=== PATIENT | male | born 1945 | race Caucasian/White ===

== ENCOUNTER 2017-04-29 16:44 | Inpatient (IN) | payer MEDICARE, MEDICAID ==
[~2017-04-29] VITALS: Ht 180.3 cm; Wt 48.3 kg
[2017-04-29] MEDS ORDERED: ARICEPT10 M1 PO (17:58)
[2017-04-29] MEDS ORDERED: CLOZARIL25 MG PO (17:59)
[2017-04-29] MEDS ORDERED: CLOZAPINE100 MG PO (17:59)
[2017-04-29] MEDS ORDERED: FLOMAX0.4 MG PO (18:00)
[2017-04-29] MEDS ORDERED: PRILOSEC20 M1 PO (18:00)
[2017-04-29] MEDS ORDERED: VITAMIN E400 UNI2 PO (18:00)
[2017-04-29] MEDS ORDERED: STRESS FORMULA PO (18:01)
[2017-04-29] MEDS ORDERED: VITAMIN D31000 UNI1 PO (18:01)
[2017-04-29] MEDS ORDERED: VITAMIN C500 M4 PO (18:02)
[2017-04-29] MEDS ORDERED: RISPERDAL2 M1 PO (18:02)
[2017-04-29] MEDS ORDERED: IRON325 M1 PO (18:03)
[2017-04-29] MEDS ORDERED: SPIRIVA18 MCG PO (18:03)
[2017-04-29] MEDS ORDERED: PROAIR HFA8.5 GM INH (18:04)
[2017-04-29] MEDS ORDERED: ATIVAN1 MG PO (18:04)
[2017-04-29] MEDS ORDERED: EXELON1 EACH T (18:06)
[2017-04-29 21:24] VITALS: BP 111/89
[2017-04-29 22:10] VITALS: BP 111/89
[2017-04-29 23:37] LABS: ALKALINE PHOSPHATASE 102 U/L (45-117); BUN 20 mg/dl (7-24); CHLORIDE 102 mmol/L (98-107); CREATININE 1.02 mg/dL (0.70-1.30); SGOT/AST 118 IU/L (3-35); SGPT/ALT 56 U/L (12-78); SODIUM 139 mmol/L (136-145); TOTAL PROTEIN 6.1 gm/dL (6.4-8.2)
[2017-04-29 23:43] LABS: BASO % 0.5 % (0.0-1.0); EOS % 0.2 % (1.0-4.0); HEMATOCRIT 42.1 % (42.0-52.0); HEMOGLOBIN 14.5 g/dl (14.0-18.0); LYMPH # 0.8 10*3/uL (1.3-4.4); LYMPH % 12.2 % (27.0-41.0); MEAN CELL VOLUME 93.8 fl (80.0-94.0); MEAN CORPUSCULAR HGB 32.3 pg (27.0-31.0); MEAN CORPUSCULAR HGB CONC 34.4 g/dl (33.0-37.0); MONO # 0.4 10*3/uL (0.1-1.0); MONO % 7.1 % (3.0-9.0); NEUT # 4.8 10*3/uL (2.3-7.9); NEUT % 78.2 % (47.0-73.0); PLATELET COUNT AUTOMATED 88 10*3/uL (130-400); RED BLOOD COUNT 4.49 10*6/uL (4.50-5.90); RED CELL DISTRI WIDTH 13.5 % (0-14.5); WHITE BLOOD COUNT 6.2 10*3/uL (4.8-10.8)
[2017-04-29 23:45] LABS: THYROID STIM HORMONE (HS) 0.951 uIU/ml (0.358-4.75)
[2017-04-30] MEDS ORDERED: EXELON1 EACH T (01:53)
[2017-04-30] MEDS ORDERED: INVEGA3 MG PO (01:56)
[2017-04-30 02:35] LABS: BILIRUBIN NEGATIVE (NEGATIVE); BLOOD 3+ (NEGATIVE); CLARITY SL CLOUDY (CLEAR); COLOR YELLOW (YELLOW); GLUCOSE NEGATIVE (NEGATIVE); KETONE TRACE (NEGATIVE); LEUKO ESTERASE NEGATIVE (NEGATIVE); NITRITE NEGATIVE (NEGATIVE); PH 5.5 (5.0-9.0); SPECIFIC GRAVITY 1.025 (1.005-1.030); UROBILINOGEN 0.2 E.U./dl (0.2-1.0)
[2017-04-30 02:47] LABS: BACTERIA 1+
[2017-04-30 03:14] VITALS: BP 112/74
== END 2017-04-30 04:03 | disposition short-term general hospital (02) | DRG 885 ==
LOC: 3N 16:44
PROVIDERS: Psychiatry & Neurology Psychiatry
DX: F20.9 Schizophrenia, unspecified (principal); J96.01 Acute respiratory failure with hypoxia; R65.20 Severe sepsis without septic shock; A41.9 Sepsis, unspecified organism; F03.91 Unspecified dementia, unspecified severity, with behavioral disturbance; F41.9 Anxiety disorder, unspecified; N40.0 Benign prostatic hyperplasia without lower urinary tract symptoms; F31.9 Bipolar disorder, unspecified; K21.9 Gastro-esophageal reflux disease without esophagitis; I10 Essential (primary) hypertension; J41.8 Mixed simple and mucopurulent chronic bronchitis; Z72.0 Tobacco use; Z79.899 Other long term (current) drug therapy; Z91.81 History of falling; Z71.6 Tobacco abuse counseling

== ENCOUNTER 2017-04-30 04:05 | Inpatient (IN) | payer MEDICARE, MEDICAID ==
[~2017-04-30] VITALS: Ht 177.8 cm; Wt 49.6 kg
--- NOTE | ~2017-04-30 | CON ---
[place], [place] REPORT OF CONSULTATION NAME: KALEIGH QUISPE UNIT #: [id number] ROOM: [facility] DOCTOR: EMILIANA NESS,ALBINA Owens BIRTHDATE: [birth year] DOS: 04/30/2017 ADDENDUM: After reviewing the labs, radiographs and microbiology, I agree with the above plans as described. We will follow the patient up clinically and adjust accordingly. ALBINA HOPSON MD CM:CONSTR:REPORT OF CONSULTATION 214 04/30/172201 interface
--- NOTE | ~2017-04-30 | PR ---
[place], [place] PROGRESS NOTE NAME: KALEIGH QUISPE UNIT #: [id number] ROOM: [facility] DOCTOR: DREW MEHTA MD BIRTHDATE: [birth year] DOS: 05/01/2017 REASON FOR VISIT: Atrial fibrillation. SUBJECTIVE: The patient is comfortable. Denies any chest pain, palpitations. No edema, no orthopnea. He is eating his late lunch today. Somewhat shaky. No nausea, vomiting. No fever and chills. REVIEW OF SYSTEMS: Review of the 8 systems negative except as mentioned above. RHYTHM STRIPS: Patient is in sinus rhythm. PHYSICAL EXAMINATION: VITAL SIGNS: Blood pressure 129/69, pulse 63, respiratory rate 19. GENERAL: Alert, comfortable, in no acute distress. NECK: Supple, no distended neck veins, no carotid bruit. CHEST: Symmetrical, nontender. LUNGS: A few scattered rhonchi. HEART: Regular rhythm. ABDOMEN: Benign, nontender. Bowel sounds normal. EXTREMITIES: Showed no edema. Distal pulses are palpable. SKIN: Warm and dry. No cyanosis, no clubbing. NEUROLOGIC: Patient is alert, oriented. No focal neurologic deficit. RECTAL: Deferred. GENITOURINARY: Deferred. IMPRESSION: 1. Paroxysmal atrial fibrillation. 2. Pneumonia. 3. Schizophrenia. RECOMMENDATIONS: 1. Blood pressure and heart rate are stable. 2. Continue his Xarelto at this time. 3. His atrial fibrillation is noted in the setting of pneumonia; again this is the first episode with his CHADS-VASc score of 1. His 2D echo showed normal LV function and valvular function, would recommend aspirin, possibly high risk for long-term anticoagulation. 4. No family at bedside at the time of my examination. 5. A 2D echo is pending, this will be done tomorrow, Tuesday. [place], [place] PROGRESS NOTE NAME: BRITTANEYKALEIGH Khan UNIT #: [id number] ROOM: [facility] DOCTOR: DREW MEHTA MD BIRTHDATE: [birth year] DREW MEHTA MD CM:PNTRANS 1547 DREW MEHTA MD 05/02/17 0105 interface
--- NOTE | ~2017-04-30 | PR ---
[place], [place] PROGRESS NOTE NAME: KALEIGH QUISPE [facility] #: [id number] UNIT #: [id number] ROOM: [facility] DOCTOR: STEPHANIE ACEVEDO,JULY BIRTHDATE: [birth year] DOS: 05/01/2017 SUBJECTIVE: The patient is being followed for community-acquired pneumonia. He arrived with it. He was originally from a retirement, went through [facility] and was pink slipped by psych to come here and presented with fever and was diagnosed with community-acquired pneumonia. He is responding well to Rocephin and Zithromax. He has been afebrile. The patient himself is a very poor historian, but he denies pain, denies cough, shortness of breath. No rash or itch. No fevers or shaking chills. No nausea, vomiting or diarrhea. He has good appetite. His blood cultures are negative. Urinary antigens are pending. Urine culture is negative. CURRENT MEDICATIONS: Include Xarelto, Rocephin, Zithromax, Phenergan, Motrin, DuoNeb, vitamin E, vitamin D, Flomax, Feosol, vitamin C, Invega, Protonix. LABORATORY DATA: WBC is 4.2, platelets 79. BUN 15, creatinine 0.64. PHYSICAL EXAMINATION: VITAL SIGNS: Temperature 97.7, pulse 80, respirations 16, BP 138/83. GENERAL: A 71-year-old male, in no acute distress. HEAD, EYES, EARS, NOSE AND THROAT: Normocephalic. No thrush. LUNGS: Clear to auscultation bilaterally. Respirations even and unlabored. HEART: Regular rhythm. No murmur appreciated. ABDOMEN: Soft, nontender. EXTREMITIES: No edema or deformity. He does have poor respiratory effort with lung auscultation as well as horrible dentition, which should be addressed at some point. ASSESSMENT: Community-acquired pneumonia. PLAN: He is responding well to Rocephin and Zithromax, which we will continue, followup for the urinary antigens, followup on blood cultures and adjust antibiotics accordingly. ADDENDUM After reviewing the chart, labs and radiographs, I agree with the above plans as described. We will follow the patient up clinically and adjust accordingly. JULY KRISTINA BROWN [place], [place] PROGRESS NOTE NAME: KALEIGH QUISPE UNIT #: [id number] ROOM: [facility] DOCTOR: STEPHANIE ACEVEDOJULY BIRTHDATE: [birth year] ALBINA HOPSON MD CM:PNTRANS 1852 12 STEPHANIE ACEVEDO 05/02/17 0826 interface
--- NOTE | ~2017-04-30 | CON ---
[place], [place] REPORT OF CONSULTATION NAME: KALEIGH QUISPE UNIT #: [id number] ROOM: [facility] DOCTOR: JANINE NESS,DREW BIRTHDATE: [birth year] DOS: 04/30/2017 CARDIOLOGY CONSULT REASON FOR CONSULTATION: Atrial fibrillation. CLINICAL HISTORY: The patient is a 71-year-old patient with anxiety, schizophrenia, COPD, dementia, presented for fever and chest x-ray shows some possible pneumonia and was admitted to the hospital and found to be in atrial fibrillation with rapid ventricular rate, hence the Cardiology was consulted. He has a history of schizophrenia, hence history was mostly obtained from the chart. There is no family at the time of my examination. The patient is somewhat poor historian, but at the time of my examination, he denies any chest pain or shortness of breath, no palpitations, no dizziness. He was treated with intravenous digoxin and metoprolol for rate control and at the time of examination, the patient was in sinus rhythm, but denied any fever, no edema, no orthopnea, no dizziness or syncope. No nausea, vomiting or diarrhea. No bladder or bowel symptoms. PAST MEDICAL HISTORY: 1. Anxiety. 2. COPD. 3. GERD. 4. Schizophrenia. 5. Benign prostatic hypertrophy. PAST SURGICAL HISTORY: Noncontributory. SOCIAL HISTORY: The patient does not drink or use illicit drugs, does smoke about half pack a day. ALLERGIES: Reviewed. HOME MEDICATIONS: Reviewed. FAMILY HISTORY: Unknown. PHYSICAL EXAMINATION: VITAL SIGNS: Blood pressure 90/55, pulse 67, respirations 14, weight 49.6 kilos. GENERAL: Alert, comfortable, in no acute distress. HEENT: Pupils are round and equal. No jaundice. NECK: Supple. No distended neck veins, no carotid bruit. CHEST: Symmetrical, nontender. LUNGS: Clear to auscultation bilaterally. HEART: Regular rhythm. No S3. Grade 1/6 systolic murmur. No palpable thrills. ABDOMEN: Benign, nontender. Bowel sounds normal. EXTREMITIES: Showed no edema. Distal pulses are palpable. SKIN: Warm and dry. No cyanosis, no clubbing. [place], [place] REPORT OF CONSULTATION NAME: KALEIGH QUISPE UNIT #: [id number] ROOM: [facility] DOCTOR: JANINE NESS,DREW BIRTHDATE: [birth year] NEUROLOGIC: The patient is alert, oriented. No focal neurologic deficit. RECTAL: Deferred. GENITOURINARY: Deferred. REVIEW OF THE DIAGNOSTIC TESTS: His labs, imaging studies and EKGs reviewed and his cardiac troponin was 0.076 and 0.087, potassium 3.9, magnesium 1.9, TSH 1.49. IMPRESSION: 1. Atrial fibrillation with rapid ventricular rate, new onset, CHADS2-VASc score appears to be 1 for his age. He has no history of hypertension, diabetes, heart failure, known coronary disease or strokes. 2. Borderline elevation of troponin, possibly due to tachycardia. The patient has no chest pain and no significant ischemic changes. 3. Borderline low blood pressure, continue to monitor heart rates and blood pressures. 4. Sepsis due to pneumonia. 5. Schizophrenia. 6. Chronic obstructive pulmonary disease. 7. Tobacco use. RECOMMENDATIONS: 1. Currently, heart rates are stable. His blood pressure is slightly low. He cannot tolerate any medications. He was already started on Xarelto 20 mg once daily for anticoagulation. As blood pressures are better, I would recommend metoprolol 25 mg once daily. 2. Check 2D echo for LV function and valvular function. 3. There is no family at the time of my examination. 4. Consider a stress test, possible Lexiscan stress test. Prior to discharge as an outpatient based on his echo findings. 5. The patient was counseled to quit smoking. Thank you, Dr. Vallecillo, for asking me to evaluate the patient. We will follow the patient along with you. DREW MEHTA MD CM:CONSTR:REPORT OF CONSULTATION 1609 05/01/17 0256 interface
--- NOTE | ~2017-04-30 | CON ---
[place], [place] REPORT OF CONSULTATION NAME: KALEIGH QUISPE UNIT #: [id number] ROOM: [facility] DOCTOR: KIM WORLEY MD BIRTHDATE: [birth year] DOS: 04/30/2017 CHIEF COMPLAINT: The patient was overly somnolent. HISTORY OF PRESENT ILLNESS: This is a 71-year-old white male who I initially evaluated at [facility]. The patient apparently had been rehabbing at [facility] and was picked up by his nurse case management from the [facility] and brought back to his [facility] where he had been a resident for some time. Within the 12 hours of him being admitted to the [facility], the patient had many, many falls and stated that the falls were because he was being bewitched by demons and witches. He was eventually brought in to [place] to be evaluated and reported to them that he was no longer able to move and could not walk any longer. Again, he attributed this all to witchcraft. The patient has a lengthy history of schizophrenia and is followed at the [facility]. He was in the process of being admitted to the [facility] when he was found to have a temperature of 102.3, a pulse ox of 88% on room air and chest x-ray showing left basilar consolidation and he was ultimately transferred from [facility] to ICU for further treatment. MENTAL STATUS: Limited due to his somnolence. DIAGNOSIS: Schizoaffective disorder. PLAN: I will restart him on Invega. He had previously been on Clozaril and Risperdal while a patient in [place]. At this point, once you stabilize him medically, I do think he would benefit from further stay at the [facility]. KIM WORLEY MD CM:CONSTR:REPORT OF CONSULTATION 0911 04/30/17 1509 interface
--- NOTE | ~2017-04-30 | PR ---
[place], [place] PROGRESS NOTE NAME: KALEIGH QUISPE [facility] #: [id number] UNIT #: [id number] ROOM: [facility] DOCTOR: KENNETH FLOREZ MD BIRTHDATE: [birth year] DOS: 05/02/2017 CARDIOLOGY PROGRESS NOTE SUBJECTIVE: The patient was seen in his ICU bed today, 05/02/2017 for followup of newly documented atrial fibrillation. He is a 71-year-old man with no previous history of heart disease, who presented to the hospital with anxiety, pneumonia and fever. He does have a history of schizophrenia and dementia and is unable to provide any coherent history. He states he feels poorly today because he does not have enough bed rest. He denies any chest pain. On admission, he did have a heart rate of 150, but he did convert spontaneously to sinus rhythm. He is being treated for pneumonia. PHYSICAL EXAMINATION: VITAL SIGNS: His pulse is 78 with an occasional premature beat, blood pressure is 111/63. He is afebrile. NECK: Supple. He has no jugular distention. CHEST: Has decreased breath sounds at the bases. HEART: Has a regular rhythm with an occasional premature contraction. He has a fourth heart sound, but no third heart sound or murmur. ABDOMEN: Benign. EXTREMITIES: Showed no edema. LABORATORY DATA: White count is 6100 with hemoglobin of 12.3 and a platelet count of 104,000. His platelet count was as low as 79,000. Sodium is 142, potassium 3.5, BUN 9 and creatinine 0.61. IMPRESSION: 1. Newly documented atrial fibrillation. CHADS-VASc score is 1 for the patient's age. 2. Borderline elevation of troponin, likely due to tachycardia. 3. Pneumonia with sepsis. 4. Schizophrenia. 5. Dementia. 6. Chronic obstructive pulmonary disease. 7. Tobacco abuse. PLAN: For now we will continue Lovenox. We will be checking an echocardiogram today. If he shows no signs of heart failure, I think that in the long run he would likely be safer if we treated him with aspirin only as his anticoagulant, especially since he has a fairly low risk for stroke in the future with a CHADS-VASc score of 1. We will continue to follow him with his other physicians. We thank the hospitalist physicians for asking our advice regarding his care. [place], [place] PROGRESS NOTE NAME: KALEIGH QUISPE UNIT #: [id number] ROOM: [facility] DOCTOR: KENNETH FLOREZ MD BIRTHDATE: [birth year] KENNETH FLOREZ MD CM:PNTRANS 1131 09 KENNETH FLOREZ MD 05/02/17 1310 interface
--- NOTE | ~2017-04-30 | CON ---
[place], [place] REPORT OF CONSULTATION NAME[facility]PE [id number] UNIT #: [id number] ROOM: [facility] DOCTOR: STEPHANIE ACEVEDO,JULY BIRTHDATE: [birth year] DOS: 04/30/2017 HISTORY OF PRESENT ILLNESS: The patient is a 71-year-old male who was transferred here from [facility]. He lives in a care home. He is schizophrenic and was apparently having issues at the care home, refusing to get out of bed, saying that he is falling a lot, that he was being affected by witchcraft. He was seen by Dr. Raymond in [facility] and pink slipped to the Behavioral Health Unit here at [facility]. However, upon arrival there, he had a temperature of 102 and was tachycardic. He was admitted into the hospital and found to have AFib with RVR as well as a chest x-ray that showed left lower lobe infiltrate. He does have a cough according to nursing. The patient himself cannot give accurate review of systems due to his mental status. He is alert. He is responsive, but per nursing, the review of systems is not accurate. His temperature has improved. He was originally dosed with Zosyn, vancomycin and Levaquin for healthcare-associated pneumonia. However, since he was transferred directly from the Emergency Room, his antibiotics were changed appropriately to Rocephin and Zithromax for community-acquired pneumonia. His urinary antigens are pending. Urine and blood cultures are pending. Again, he is afebrile at this point. I do not see a swab for correction. He also had an influenza that was negative. History is obtained per discussion with nursing and review of the chart. PAST MEDICAL HISTORY: As above as well as anemia, anxiety, BPH, COPD, GERD, dementia, hypertension, schizophrenia. SOCIAL HISTORY: He is a smoker, half pack of cigarettes per day. He does not know for how long. He actually cannot tell me how much he smokes but that is what is documented on his chart. He does not answer regarding alcohol or illicit drug use; however, according to the chart, he does not use either and again, he lives in a care home. FAMILY MEDICAL HISTORY: Unknown and unobtainable. ALLERGIES: No known drug allergies. CURRENT MEDICATIONS: Include Xarelto, Rocephin, Zithromax, Phenergan, Motrin, DuoNebs, vitamin E, vitamin D, Feosol, vitamin C, Invega, Protonix. LABORATORY DATA: WBC 6.8, platelets 89. Urine for legionella and strep pneumo antigen are negative. His UA does not have any significant pyuria. His troponin is elevated at 0.076. BUN 23, creatinine 0.86, AST 134, ALT 58. REVIEW OF SYSTEMS: Again, is unreliable from the patient. He does deny any pain. Denies any nausea, vomiting, diarrhea. No cough or shortness of breath. No fevers or shaking chills, but again according to nursing, he does have cough. He has had a good appetite. His fever has resolved. His tachycardia has improved. PHYSICAL EXAMINATION: [place], [place] REPORT OF CONSULTATION NAME: KALEIGH QUISPE UNIT #: [id number] ROOM: [facility] DOCTOR: STEPHANIE ACEVEDOJULY BIRTHDATE: [birth year] VITAL SIGNS: Temperature 97, pulse 67, respirations 16, BP 84/57. GENERAL: A 71-year-old male in no acute distress, nontoxic in appearance. Underweight. HEAD, EYES, EARS, NOSE AND THROAT: Normocephalic. No thrush. Has horrific dentition. LUNGS: Difficult to auscultate as he is not very cooperative with deep inspiration for auscultation; however, they seem to be somewhat clear to auscultation. Respirations even and unlabored. HEART: Regular rhythm. No murmur appreciated. ABDOMEN: Soft, nondistended, nontender. Positive bowel sounds. EXTREMITIES: No edema, deformity or cyanosis. SKIN: Warm, dry, free of rashes. ASSESSMENT: Community-acquired pneumonia. PLAN: We will follow up on urine for legionella and strep pneumo antigen. Continue the Rocephin and Zithromax and follow up on his cultures. Case discussed with Dr. Albina Hopson. VEL KRISTINA BROWN ALBINA HOPSON MD CM:CONSTR:REPORT OF CONSULTATION 1750 05/01/17 0850 interface
--- NOTE | ~2017-04-30 | EKG ---
[place], [place] ELECTROCARDIOGRAM REPORT NAME: KALEIGH QUISPE UNIT #: [id number] ROOM: [facility] DOCTOR: JANINE NESS,DREW BIRTHDATE: [birth year] DOS: 04/30/2017 TIME: 4:37 a.m. IMPRESSION: 1. Atrial fibrillation with rapid ventricular rate, 136. 2. Nonspecific ST-T changes. 3. Normal QT interval. DREW MEHTA MD CM:EKGRPT:ELECTROCARDIOGRAM REPORT 1429 2320 DREW MEHTA MD
[2017-04-30 04:00] VITALS: BP 82/62
[~2017-04-30 04:05] MED LIST: ARICEPT10 M1 PO; ATIVAN1 MG PO; CLOZAPINE100 MG PO; CLOZARIL25 MG PO; EXELON1 EACH T; FLOMAX0.4 MG PO; INVEGA3 MG PO; IRON325 M1 PO; PRILOSEC20 M1 PO; PROAIR HFA8.5 GM INH; RISPERDAL2 M1 PO; SPIRIVA18 MCG PO; STRESS FORMULA PO; VITAMIN C500 M4 PO; VITAMIN D31000 UNI1 PO; VITAMIN E400 UNI2 PO
[2017-04-30 05:08] LABS: BASO % 0.1 % (0.0-1.0); EOS % 0.1 % (1.0-4.0); HEMATOCRIT 39.4 % (42.0-52.0); HEMOGLOBIN 13.3 g/dl (14.0-18.0); LYMPH # 1.1 10*3/uL (1.3-4.4); LYMPH % 16.5 % (27.0-41.0); MEAN CELL VOLUME 93.6 fl (80.0-94.0); MEAN CORPUSCULAR HGB 31.6 pg (27.0-31.0); MEAN CORPUSCULAR HGB CONC 33.8 g/dl (33.0-37.0); MEAN PLATELET VOLUME 10.3 fl (9.6-12.3); MONO # 0.7 10*3/uL (0.1-1.0); MONO % 9.5 % (3.0-9.0); NEUT % 73.7 % (47.0-73.0); PLATELET COUNT AUTOMATED 89 10*3/uL (130-400); RED BLOOD COUNT 4.21 10*6/uL (4.50-5.90); RED CELL DISTRI WIDTH 13.6 % (0-14.5); WHITE BLOOD COUNT 6.8 10*3/uL (4.8-10.8)
[2017-04-30 05:25] LABS: ALBUMIN 2.9 gm/dl (3.1-4.5); ALKALINE PHOSPHATASE 93 U/L (45-117); BUN 23 mg/dl (7-24); CHLORIDE 103 mmol/L (98-107); CHOLESTEROL 142 mg/dL (<200); CREATININE 0.86 mg/dL (0.70-1.30); HDL CHOLESTEROL 55 mg/dl (40-60); LDL CHOLESTEROL 75 mg/dL (9-159); PHOSPHOROUS 3.5 mg/dL (2.5-4.9); POTASSIUM 3.9 mmol/L (3.5-5.1); SGOT/AST 134 IU/L (3-35); SGPT/ALT 58 U/L (12-78); SODIUM 141 mmol/L (136-145); TOTAL PROTEIN 5.7 gm/dL (6.4-8.2); TRIGLYCERIDES 58 mg/dl (<150); VLDL CHOLESTEROL 12 mg/dL (6-40)
[2017-04-30 05:32] LABS: TROPONIN I 0.087 ng/ml (<0.045)
[2017-04-30 07:27] LABS: VITAMIN D, 25-HYDROXY 36.4 ng/mL (30-100)
[2017-04-30 08:00] VITALS: BP 108/62
[2017-04-30 10:00] VITALS: BP 90/55
[2017-04-30 12:00] VITALS: BP 98/54
[2017-04-30 15:53] LABS: BILIRUBIN NEGATIVE (NEGATIVE); BLOOD 2+ (NEGATIVE); CLARITY CLEAR (CLEAR); COLOR YELLOW (YELLOW); GLUCOSE NEGATIVE (NEGATIVE); KETONE NEGATIVE (NEGATIVE); LEUKO ESTERASE NEGATIVE (NEGATIVE); NITRITE NEGATIVE (NEGATIVE); PH 5.5 (5.0-9.0); UROBILINOGEN 0.2 E.U./dl (0.2-1.0)
[2017-04-30 16:00] VITALS: BP 84/57
[2017-04-30 16:04] LABS: BACTERIA TRACE
[2017-04-30 20:00] VITALS: BP 100/75
[2017-05-01 04:00] VITALS: BP 127/61
[2017-05-01 06:15] LABS: BASO % 0.5 % (0.0-1.0); EOS # 0.2 10*3/uL (0.0-0.4); EOS % 3.8 % (1.0-4.0); HEMATOCRIT 34.7 % (42.0-52.0); HEMOGLOBIN 11.5 g/dl (14.0-18.0); LYMPH # 1.6 10*3/uL (1.3-4.4); LYMPH % 37.6 % (27.0-41.0); MEAN CORPUSCULAR HGB 30.8 pg (27.0-31.0); MEAN CORPUSCULAR HGB CONC 33.1 g/dl (33.0-37.0); MEAN PLATELET VOLUME 10.2 fl (9.6-12.3); MONO # 0.4 10*3/uL (0.1-1.0); NEUT # 2.1 10*3/uL (2.3-7.9); NEUT % 48.9 % (47.0-73.0); PLATELET COUNT AUTOMATED 79 10*3/uL (130-400); RED BLOOD COUNT 3.73 10*6/uL (4.50-5.90); RED CELL DISTRI WIDTH 13.6 % (0-14.5); WHITE BLOOD COUNT 4.2 10*3/uL (4.8-10.8)
[2017-05-01 06:20] LABS: BUN 15 mg/dl (7-24); CHLORIDE 109 mmol/L (98-107); CREATININE 0.64 mg/dL (0.70-1.30); POTASSIUM 3.8 mmol/L (3.5-5.1); SODIUM 143 mmol/L (136-145)
[2017-05-01 08:00] VITALS: BP 129/69
[2017-05-01 12:00] VITALS: BP 120/75
[2017-05-01 16:00] VITALS: BP 138/83
[2017-05-01 20:00] VITALS: BP 119/69
[2017-05-02] VITALS: BP 127/75
[2017-05-02 04:00] VITALS: BP 125/67
[2017-05-02 06:02] LABS: BUN 9 mg/dl (7-24); CHLORIDE 106 mmol/L (98-107); CREATININE 0.61 mg/dL (0.70-1.30); POTASSIUM 3.5 mmol/L (3.5-5.1); SODIUM 142 mmol/L (136-145)
[2017-05-02 06:02] LABS: BASO % 0.2 % (0.0-1.0); EOS # 0.2 10*3/uL (0.0-0.4); EOS % 2.9 % (1.0-4.0); HEMATOCRIT 35.9 % (42.0-52.0); HEMOGLOBIN 12.3 g/dl (14.0-18.0); LYMPH # 1.6 10*3/uL (1.3-4.4); LYMPH % 26.5 % (27.0-41.0); MEAN CELL VOLUME 91.3 fl (80.0-94.0); MEAN CORPUSCULAR HGB 31.3 pg (27.0-31.0); MEAN CORPUSCULAR HGB CONC 34.3 g/dl (33.0-37.0); MEAN PLATELET VOLUME 10.7 fl (9.6-12.3); MONO # 0.5 10*3/uL (0.1-1.0); MONO % 7.5 % (3.0-9.0); NEUT # 3.8 10*3/uL (2.3-7.9); NEUT % 62.6 % (47.0-73.0); RED BLOOD COUNT 3.93 10*6/uL (4.50-5.90); RED CELL DISTRI WIDTH 13.4 % (0-14.5); WHITE BLOOD COUNT 6.1 10*3/uL (4.8-10.8)
[2017-05-02 06:12] LABS: PLATELET COUNT AUTOMATED 104 10*3/uL (130-400)
[2017-05-02 08:00] VITALS: BP 111/63
[2017-05-02 12:00] VITALS: BP 135/77
[2017-05-02 16:00] VITALS: BP 116/71
[2017-05-02 20:00] VITALS: BP 120/59; BP 156/56
[2017-05-03] VITALS: BP 112/58
[2017-05-03 08:00] VITALS: BP 117/73
[2017-05-03 12:00] VITALS: BP 100/59
[2017-05-03] MEDS ORDERED: DOXYCYCLINE100 M3 PO (12:58)
== END 2017-05-03 16:37 | disposition home or self-care (01) | DRG 871 ==
LOC: 4E 04:05 → ICCU 04:05 → 4E 05-02 15:11
PROVIDERS: Hospitalist; Internal Medicine
DX: A41.9 Sepsis, unspecified organism (principal); J18.1 Lobar pneumonia, unspecified organism; J96.01 Acute respiratory failure with hypoxia; E44.0 Moderate protein-calorie malnutrition; I48.91 Unspecified atrial fibrillation; F03.91 Unspecified dementia, unspecified severity, with behavioral disturbance; Z68.1 Body mass index [BMI] 19.9 or less, adult; J44.9 Chronic obstructive pulmonary disease, unspecified; K21.9 Gastro-esophageal reflux disease without esophagitis; F41.9 Anxiety disorder, unspecified; N40.0 Benign prostatic hyperplasia without lower urinary tract symptoms; I10 Essential (primary) hypertension; Z79.899 Other long term (current) drug therapy; F17.200 Nicotine dependence, unspecified, uncomplicated; Z71.6 Tobacco abuse counseling; F25.9 Schizoaffective disorder, unspecified

== ENCOUNTER 2017-05-03 14:45 | Inpatient (IN) | payer MEDICARE, MEDICAID ==
[~2017-05-03] VITALS: Ht 177.8 cm; Wt 49.6 kg
--- NOTE | ~2017-05-03 | DS ---
[place], [place] DISCHARGE SUMMARY NAME: KALEIGH QUISPE [facility] #: [id number] UNIT #: [id number] ROOM: 317 DOCTOR: KIM WORLEY MD BIRTHDATE: [birth year] DOS: 05/11/2017 CHIEF COMPLAINT: "I would rather go back to [place]." HISTORY OF PRESENT ILLNESS: This is a 71-year-old white male who I initially evaluated while at [facility]. The patient was living at the [facility] and sustained an injury there, requiring him to rehab at [facility]. After he had a successful rehabilitation stint, the patient was brought to [facility] and within 12 hours of readmission there began experiencing multiple falls, stating that he could no longer walk because of witchcraft and his body was possessed by witches. Upon admission to [facility], the patient continued to report that he could not move and was almost catatonic in bed. He refused to cooperate with physical therapy and occupational therapy because of the witches in his body. He ultimately was sent to the [facility] for stabilization, but within hours of coming to the [facility] his fever spiked to 102.3, pulse ox on room air was 88% and a chest x-ray showed left basilar airspace disease and consolidation. He was ultimately sent to the ICU at [facility] to treat pneumonia and re-stabilize. He continued to complain of psychiatric issues, though even after the pneumonia cleared and was brought back to re-stabilize psychiatrically. PAST MEDICAL HISTORY: Remarkable for anemia, benign prostatic hypertrophy, COPD, GERD, history of falls, hypertension, moderate protein calorie malnutrition, thrombocytopenia and a lengthy history of schizoaffective disorder. SUMMARY OF HOSPITAL COURSE: The patient was seen and was initially taking both Risperdal and Clozaril. I had already made the switch to Invega and the Clozaril and he was tolerating those well. Because compliance can be an issue for him, after several days of taking oral Invega, I did load him with Invega Sustenna and gave him a secondary loading dose that he tolerated extremely well. With the combination of the Invega and the Clozaril, his symptoms abated. He did have issues regarding gait and it was felt that he would do better at least short term if not long-term at [place]. He repeatedly requested that he go back to [place] and not go back to the [facility]. He was tolerating the medication regimen well. There were no extrapyramidal symptoms, tardive dyskinesia or any other type of side effects. MENTAL STATUS AT DISCHARGE: The patient was alert and oriented with time gaps. Mood was euthymic. Affect appropriate. He engaged in superficial, but bright conversation. There was no talk of witches, no other delusions were noted, no paranoia. Short-term memory had gaps, otherwise he was intact. FINAL DIAGNOSIS: Schizoaffective disorder. PLAN: All of his prescriptions have been printed and will be sent with him. He will go to [place] where he will have followup with the psychiatrist there of record. [place], [place] DISCHARGE SUMMARY NAME: KALEIGH QUISPE UNIT #: [id number] ROOM: [facility] DOCTOR: KIM WORLEY MD BIRTHDATE: [birth year] KIM WORLEY MD CM:DISCHARG 1009 1531 KIM WORLEY MD 05/11/17 1530 interface
--- NOTE | ~2017-05-03 | CON ---
[place], [place] REPORT OF CONSULTATION NAME[facility]PE [id number] UNIT #: [id number] ROOM: 315 DOCTOR: LANDEN RAO ED.D (BENSON) BIRTHDATE: [birth year] DOS: 05/04/2017 HISTORY OF PRESENT ILLNESS: The patient is a 71-year-old male referred by Dr. Raymond for competency evaluation. At the present time, this patient is on the [facility] at [facility]. This patient is single and has never been . He does have a sister who he would like to have make his healthcare decisions. He is presently a resident at the [facility] in [facility]. His medical history is pertinent for pneumonia, sepsis, BPH, COPD, GERD, hypertension, and schizoaffective disorder. His medications include Invega and Clozaril. This patient denies any substance abuse issues, although he does indicate that he is a smoker. He states he worked for approximately 6 years at [employer] in [place], [place]. After that, he states he did not work any longer. He graduated from [employer]. He was awake, alert and oriented in all three spheres. He knew the date, he knew the year, and he knew he was in [facility]. He does have auditory and visual hallucinations, however. He does understand the risks and benefits of treatment, but is clearly hallucinating at this time and he admits that he is hallucinating. He states he would like his sister to make healthcare decisions and is willing to sign a power of commercial real estate attorney for healthcare for his sister to make his decisions. At this point in time, I do not believe a guardianship is warranted because I believe a power of commercial real estate attorney for healthcare would suffice. DIAGNOSIS: Schizoaffective disorder. RECOMMENDATIONS: In my opinion, paperwork should be completed for this patient to have his sister as his healthcare power of commercial real estate attorney. Thank you very much for this consult. LANDEN RAO ED.D CM:CONSTR:REPORT OF CONSULTATION 1530 05/04/172135 interface KIM RAYMOND MD
--- NOTE | ~2017-05-03 | PR ---
[place], [place] PROGRESS NOTE NAME: KALEIGH QUISPE [facility] #: [id number] UNIT #: [id number] ROOM: 309 DOCTOR: Alissa DE LA GARZA,DOREEN BIRTHDATE: [birth year] DOS: 05/05/2017 SUBJECTIVE: The patient seen and spoke with the staff. Per staff, the patient is taking medication, no visual problems or issues, but he is still internally stimulated. He slept well last night. The patient was pleasant and cooperative. He was in the day area. He said that he is doing okay. He denied any auditory or visual hallucination, but seems responding to stimuli. He did not express any other concern. He reported good sleep and appetite. MENTAL STATUS EXAMINATION: Pleasant, cooperative. Described his mood as "okay." Affect, mood congruent. Thought process goal directed. No flight of ideas, loosening of association. He denied auditory or visual hallucination, but seems responding to stimuli. No overt delusion or paranoia noted. He denied suicidal ideation, intent or plan. He also denied homicidal ideation, intent or plan. ASSESSMENT: Schizoaffective disorder. PLAN: 1. Continue current medication and care. 2. Encourage activities and groups. 3. A 1:1 therapy, psychoeducation and coping skill. DOREEN DE LA GARZA MD CM:PNBEATA 1832 [id number] Alissa DE LA GARZA 05/07/17 2340 interface
--- NOTE | ~2017-05-03 | WRIGHTHP ---
[place], [place] PATIENT HISTORY AND PHYSICAL EXAM [id number] #: [id number] ROOM: 315 DOCTOR: KIM WORLEY MD BIRTHDATE: [birth year] DOS: 05/04/2017 CHIEF COMPLAINT: "I'd rather go back to [place]." HISTORY OF PRESENT ILLNESS: This is a 71-year-old white who was initially seen by me at [facility] Intensive Care Unit. Apparently, the patient had been living at the [facility], had sustained an injury requiring him to rehab at [facility]. After a successful rehabilitation stint, the patient was brought back to [facility] and within the 12 hours of readmission there, he began to experience multiple falls and stated that he no longer could walk because of witchcraft and because his body was possessed by witches. Upon admission to [facility], the patient continued to report that he could not move and was almost catatonic like in the bed. He refused to cooperate with PT or OT because he felt that the witches had possessed his body. He was ultimately sent here for further stabilization, but within the first hour of coming on to the U, he was noted to have a fever of 102.3, pulse ox was 88% on room air and a chest x-ray was performed showing left basilar airspace disease and consolidation. He was ultimately sent then to ICU for further treatment of pneumonia and restabilized there. He continues, however, to complain of psychiatric issues. His oral intake has been very poor and he has lost considerable amount of weight. He has not been sleeping well. He continues to voice bizarre delusional complaints and is readmitted now to stabilize on medication, to engage in individual and irwin milieu activity and to explore possible discharge options. PAST MEDICAL HISTORY: Remarkable for history of anemia, benign prostatic hypertrophy, COPD, GERD, falls, hypertension, moderate protein calorie malnutrition, thrombocytopenia and also a lengthy history of schizoaffective disorder. MENTAL STATUS: The patient is alert and oriented with some time gaps. Mood does seem to be depressed. Affect is constricted. His responses are short and simple but he was engaging. He did not voice any abnormal thoughts during the interview, although the interview was somewhat short because his responses were somewhat shortened and dismissive. Memory did exhibit some gaps. DIAGNOSIS: Schizoaffective disorder. PLAN: I have maintained him on the Invega, which I started when he was at [facility]. I have restarted him on Clozaril yesterday 50 mg at night. I will increase this to 100 mg at night and also augment with Remeron 15 mg at bedtime. We will attempt to increase his calorie count while here and determine whether he should return back to a [facility] or perhaps a long-term care facility. We will discharge when psychiatrically stable. [place], [place] PATIENT HISTORY AND PHYSICAL EXAM NAME: KALEIGH QUISPE UNIT #: [id number] ROOM: 315 DOCTOR: KIM WORLEY MD BIRTHDATE: [birth year] KIM WORLEY MD CM:HISPHYS:PATIENT HISTORY AND PHYSICAL EXAMINATION 1002 1020 KIM WORELY MD 05/04/17 1020 interface
--- NOTE | ~2017-05-03 | PR ---
[place], [place] [facility]GRESS NOTE [id number] UN[facility] #: [id number] ROOM: 309 DOCTOR: KIM WORLEY MD BIRTHDATE: [birth year] DOS: 05/09/2017 CHIEF COMPLAINT: "I walked, I am eating, I feel a little better." SUMMARY OF THE VISIT: The patient was interviewed as he reclined in his chair watching television in the dining area. He engaged readily in conversation. He did report that he walked up and down the [place] with the assistance of physical therapy and that he is feeling slightly stronger, but still feels unsteady. He feels like he needs to build up his strength: He is eating well. In fact, nurses state he is eating 100% of everything that is put in front of him. Mood still seems to be somewhat down and he describes himself as 50/50. He does exhibit some mild memory loss. Otherwise, he is fairly intact and there is no agitation or aggression. MENTAL STATUS: He is alert and oriented with time gaps. Mood does seem to be slightly depressed, but improving. Affect is more appropriate. There is no star or hypomania. There are no overt auditory or visual hallucinations. No delusions, no paranoia. Short term memory has gaps. PLAN: I will go ahead and maximize out his Exelon patch from 9.5-13.3 mg daily. C-reactive protein is elevated at 1.44. I do have other immunology test pending. We will review those and defer to the hospitalist to see if any further treatment is needed. KIM WORLEY MD CM:PNTRANS [id number] KIM WORLEY MD 05/09/1714 interface
--- NOTE | ~2017-05-03 | PR ---
[place], [place] PROGRESS NOTE NAME: KALEIGH QUISPE UNIT #: [id number] ROOM: 309 DOCTOR: KIM WORLEY MD BIRTHDATE: [birth year] DOS: 05/10/2017 CHIEF COMPLAINT: "I guess things are okay." SUMMARY OF THE VISIT: The patient was interviewed as he reclined in a Anabelle chair in the dining area, watching television. He engaged readily in conversation. He has been more conversant and consistently more conversant than upon admission. He is now even interacting with other peers and with the nurses. He does report that he is feeling well and notes no issues. His appetite remains solid. Nurses do report; however, he had a very poor night sleep and was up frequently throughout the night. He is tolerating the current medication regimen well. MENTAL STATUS: He is alert and oriented. There are some time gaps. Mood does seem to be improving. Affect is more appropriate. There is no voiced paranoia. There are no voice delusions or auditory or visual hallucinations. Memory has some mild gaps. PLAN: I will go ahead and switch him over from oral Invega to the long-acting decanoate prep. I will load with Invega Sustenna 234 mg IM today, reload with Invega Sustenna 156 mg IM next week and then utilize that dose q. month. I will utilize Rozerem 8 mg at bedtime as a sleep aid that is nonaddicting. We will proceed with discharge plans discharging him to the least restrictive environment when psychiatrically stable. KIM WORLEY MD CM:PNTRANS KIM WORLEY MD 05/10/17 0932 interface
--- NOTE | ~2017-05-03 | PR ---
[place], [place] PROGRESS NOTE NAME: KALEIGH QUISPE [facility] #: [id number] UNIT #: [id number] ROOM: 309 DOCTOR: Alissa DE LA GARZA,DOREEN BIRTHDATE: [birth year] DOS: 05/08/2017 PSYCHIATRIC PROGRESS NOTE SUBJECTIVE: Patient seen and spoke with the staff. Per staff, patient is taking his medication. No behavioral problems or issues. He was sitting in the Anabelle chair. Patient was pleasant and cooperative. As mentioned earlier, he was in the Anabelle chair in the day area, says he is feeling better, not in distress. Denied any side effect from the medication. He reports good sleep and appetite. MENTAL STATUS EXAMINATION: Patient was pleasant and cooperative. Described his mood as "better." Affect, mood congruent. Thought process, goal directed. No flight of ideas, loosening of association. He denied auditory or visual hallucination. No delusion or paranoia noted. He denied suicidal ideation, intent or plan. He also denied homicidal ideation, intent or plan. ASSESSMENT: Schizoaffective disorder. PLAN: 1. Continue current medication and care. 2. Continue redirection. 3. Encourage activity and groups. 4. Final medication management and discharge plan by the regular team. DOREEN DE LA GARZA MD CM:NATHALIE 04 Alissa DE LA GARZA 05/08/17 2314 interface
[~2017-05-03 14:45] MED LIST changes: +DOXYCYCLINE100 M3 PO
[2017-05-03 16:55] VITALS: BP 112/82
[2017-05-03 17:07] VITALS: BP 112/82
[2017-05-03 20:04] VITALS: BP 112/82
[2017-05-04 07:51] VITALS: BP 120/63
[2017-05-04 20:00] VITALS: BP 100/62
[2017-05-05 07:59] VITALS: BP 125/75
[2017-05-05 20:38] VITALS: BP 98/67
[2017-05-06 08:03] VITALS: BP 114/62
[2017-05-06 20:00] VITALS: BP 108/53
[2017-05-07 07:06] LABS: RHEUMATOID ARTHRITIS FACTOR <10.0 IU/mL (0.0-13.9)
[2017-05-07 08:05] VITALS: BP 112/58
[2017-05-07 19:53] VITALS: BP 123/75
[2017-05-08 07:45] VITALS: BP 121/74
[2017-05-08 19:58] VITALS: BP 110/66
[2017-05-09 07:52] LABS: BASO % 0.3 % (0.0-1.0); EOS # 0.1 10*3/uL (0.0-0.4); EOS % 1.3 % (1.0-4.0); HEMATOCRIT 39.9 % (42.0-52.0); HEMOGLOBIN 13.2 g/dl (14.0-18.0); LYMPH # 1.2 10*3/uL (1.3-4.4); LYMPH % 17.5 % (27.0-41.0); MEAN CELL VOLUME 94.8 fl (80.0-94.0); MEAN CORPUSCULAR HGB 31.4 pg (27.0-31.0); MEAN CORPUSCULAR HGB CONC 33.1 g/dl (33.0-37.0); MEAN PLATELET VOLUME 9.1 fl (9.6-12.3); MONO # 0.6 10*3/uL (0.1-1.0); MONO % 8.5 % (3.0-9.0); NEUT % 72.1 % (47.0-73.0); PLATELET COUNT AUTOMATED 281 10*3/uL (130-400); RED BLOOD COUNT 4.21 10*6/uL (4.50-5.90); RED CELL DISTRI WIDTH 13.5 % (0-14.5); WHITE BLOOD COUNT 6.9 10*3/uL (4.8-10.8)
[2017-05-09 08:01] VITALS: BP 103/62
[2017-05-09 19:38] VITALS: BP 106/54
[2017-05-10 07:58] VITALS: BP 100/65
[2017-05-10 20:00] VITALS: BP 102/64
[2017-05-11 07:38] VITALS: BP 110/68
[2017-05-11] MEDS ORDERED: MIRTAZAPINE15 M2 PO (09:57)
[2017-05-11] MEDS ORDERED: EXELON13.3 MG/21 T (09:57)
[2017-05-11] MEDS ORDERED: INVEGA SUSTENN156 MG IM (09:57)
[2017-05-11] MEDS ORDERED: CLOZAPINE100 MG PO (09:57)
[2017-05-11] MEDS ORDERED: ROZEREM8 MG PO (09:57)
== END 2017-05-11 10:45 | disposition other institution (70) | DRG 885 ==
LOC: 3N 14:45
PROVIDERS: Psychiatry & Neurology Psychiatry
DX: F25.9 Schizoaffective disorder, unspecified (principal); J18.1 Lobar pneumonia, unspecified organism; E44.0 Moderate protein-calorie malnutrition; I48.0 Paroxysmal atrial fibrillation; F03.91 Unspecified dementia, unspecified severity, with behavioral disturbance; J44.0 Chronic obstructive pulmonary disease with (acute) lower respiratory infection; Z68.1 Body mass index [BMI] 19.9 or less, adult; K21.9 Gastro-esophageal reflux disease without esophagitis; I10 Essential (primary) hypertension; F41.9 Anxiety disorder, unspecified; D64.9 Anemia, unspecified; N40.0 Benign prostatic hyperplasia without lower urinary tract symptoms; F03.90 Unspecified dementia, unspecified severity, without behavioral disturbance, psychotic disturbance, mood disturbance, and anxiety; Z91.81 History of falling; Z72.0 Tobacco use